=== PATIENT | female | born 1965 | race Hispanic/Latino ===

== ENCOUNTER → 2018-08-30 | Day surgery (SDC) | payer OTHER ==
[~2018-08-30] MED LIST: ACETAMINOPHEN325 M1 PO; ALLEGRA ALLERG180 MG PO; ALLEGRA-D 24 H1 EACH PO; CALCIUM + VIT D PO; CALCIUM PO; FENTANYL CITRATE/PF 100MCG/2 ML INJ ONE; MIDAZOLAM HCL 2 MG/2 ML VIAL ONE; OMEPRAZOLE20 MG PO; PANTOPRAZOLE SO40 MG PO; PROPOFOL IV EMULSION 10 MG/ML 50 ML VIAL ONE; SUCRALFATE1 GM PO; VITAMIN B-121000 MC1 PO; VITAMIN D1000 UNI1 PO; VITAMIN D3 PO; VITAMIN E PO; ZANTAC 7575 MG PO; ZANTAC150 MG PO; [UNRECOGNIZED DRUG - OTHER] PO; [UNRECOGNIZED DRUG - OTHER] PO; [UNRECOGNIZED DRUG - OTHER] PO; [UNRECOGNIZED DRUG - OTHER] PO
[2018-08-30 11:10] VITALS: BP 120/78
--- NOTE | 2018-08-30 11:41 | Operative Report ---
DATE OF PROCEDURE: August 30, 2018 REFERRING PHYSICIAN: Dr. Kiara Kyle. PROCEDURE PERFORMED: Esophagogastroduodenoscopy with biopsies. INDICATIONS FOR ESOPHAGOGASTRODUODENOSCOPY: Burning upper abdominal pain, excessive belching. MEDICATION: Patient was done under MAC. Please see anesthesiologist's note. PROCEDURE: With the patient in the left lateral decubitus position, the flexible fiberoptic Olympus gastroscope was introduced into the esophagus under direct visualization without any difficulty. There was some patchy erythema noted in the distal esophagus. The scope was then advanced with ease into the stomach, and there were a couple of erosions noted in the antrum without active bleeding, and biopsies were obtained and sent to stain for H. pylori. Multiple minute hyperplastic-appearing polyps were noted in the body of the stomach. Some were partially excised with the cold biopsy forceps. Pylorus appeared to be of normal contour and shape, was intubated with ease, and the scope was advanced all the way to the 2nd portion of the duodenum. The scope was then withdrawn slowly. Mucosa overlying the proximal 2nd portion and the duodenal bulb appeared to be within normal limits. Biopsies were obtained to rule out sprue. The scope was then withdrawn back into the stomach and retroflexed, and the mucosa overlying the fundus and the cardia appeared to be within normal limits. The scope was then straightened out. The stomach was decompressed. The scope was subsequently withdrawn. Patient tolerated procedure well. IMPRESSION: 1. Distal esophagitis, mild. 2. Erosive gastritis biopsied. Biopsies sent to stain for H. pylori. 3. Gastric polyps, body, hyperplastic-appearing, some partially excised with the cold biopsy forceps. 4. Rule out sprue. PLAN: Follow up histology. Continue Protonix 40 mg 1 p.o. a.c. b.i.d. Add Reglan 10 mg 1 p.o. before supper and nightly. Job#: [id number] EV cc:KIARA KYLE MD
== END | disposition home or self-care (01) ==
LOC: OR 08:49
PROVIDERS: ATTEND Internal Medicine Gastroenterology
DX: K21.0 Gastro-esophageal reflux disease with esophagitis (principal); K31.7 Polyp of stomach and duodenum; K25.9 Gastric ulcer, unspecified as acute or chronic, without hemorrhage or perforation; Z01.810 Encounter for preprocedural cardiovascular examination; Z68.28 Body mass index [BMI] 28.0-28.9, adult
CPT/HCPCS: 43239; 93005; J2250

== ENCOUNTER → 2020-01-14 | Day surgery (SDC) | payer OTHER ==
[~2020-01-14] MED LIST changes: +LIDOCAINE HCL 2% LOCAL INJ 5 ML SDV VIAL INJ ONE; +METOCLOPRAMIDE HCL 10 MG/2ML VIAL ONE; +PROPOFOL IV EMULSION 10 MG/ML 20 ML VIAL ONE; -PROPOFOL IV EMULSION 10 MG/ML 50 ML VIAL ONE; +[UNRECOGNIZED DRUG - OTHER] PO
[2020-01-14 12:20] VITALS: BP 116/63
--- NOTE | 2020-01-14 15:25 | Operative Report ---
DATE OF PROCEDURE: 01/14/2020 SURGEON: Lazaro Bridges MD PROCEDURE: EGD with polypectomy, esophageal dilatation, pyloric channel balloon dilatation and biopsies. INDICATIONS FOR EGD: Dysphagia, severe acid reflux. MEDICATIONS: The patient was done under MAC, please see anesthesiologist's note. PROCEDURE IN DETAIL: With the patient in left lateral decubitus position, the flexible fiberoptic Olympus gastroscope was introduced into the esophagus under direct visualization without any difficulty. There was some patchy erythema noted in the distal esophagus. The esophagus was dilated to size 52-[employer]. The scope was then advanced with ease into the stomach. Mucosa overlying the antrum and the body revealed some patchy erythema and low-grade to moderate edema. Biopsies were obtained, sent to stain for H pylori. Several minute hyperplastic-appearing polyps were noted in the body of the stomach and some were partially excised with the cold biopsy forceps. There was a minute prepyloric nodule and that was biopsied. Pylorus was then dilated to size 20 mm per TTS balloon dilators. The scope was then advanced with ease into the duodenum and it was then withdrawn slowly and biopsies were obtained from the proximal second portion and the duodenal bulb to rule out sprue. The scope was then withdrawn back into the stomach and retroflexed and mucosa overlying the fundus and cardia appeared to be within normal limits. The scope was then straightened out and was subsequently withdrawn. The patient tolerated the procedure well. IMPRESSION: 1. Distal esophagitis, mild. 2. Esophagus dilated to size 52-[employer] Infante. 3. Gastritis. 4. Gastric polyps, body, hyperplastic-appearing, some partially excised with the cold biopsy forceps. 5. Prepyloric nodule, biopsied. 6. Pyloric channel dilated to size 20 mm per TTS balloon dilators. 7. Rule out sprue. PLAN: Follow up histology. Initiate Dexilant 60 mg one p.o. q.a.m. a.c. Continue Carafate 1 g p.o. a.c. t.i.d. and at bedtime. Start Zantac 300 mg one p.o. at bedtime and continue Motilium 10 mg one p.o. a.c. t.i.d. and at bedtime. If the patient's symptoms persist, we will proceed with a gastric emptying study. MD GENET Mckeon/JODI /[id number] cc: Bear Sousa MD
== END | disposition home or self-care (01) ==
LOC: OR 10:00
PROVIDERS: ATTEND Internal Medicine Gastroenterology
DX: K21.0 Gastro-esophageal reflux disease with esophagitis (principal); J02.9 Acute pharyngitis, unspecified; R03.0 Elevated blood-pressure reading, without diagnosis of hypertension; Z68.29 Body mass index [BMI] 29.0-29.9, adult; K20.9 Esophagitis, unspecified; K29.70 Gastritis, unspecified, without bleeding; K31.7 Polyp of stomach and duodenum; Z11.59 Encounter for screening for other viral diseases; Z01.810 Encounter for preprocedural cardiovascular examination
CPT/HCPCS: 43239; 43450; 87635; 93005; C1726; J2001; J2250; J2704; J2765; J3010; 43233

== ENCOUNTER 2021-07-29 07:12 | Emergency (ER) | payer BC, OTHER ==
[~2021-07-29] VITALS: Ht 162.6 cm; Wt 73.0 kg
[~2021-07-29 07:12] MED LIST changes: -FENTANYL CITRATE/PF 100MCG/2 ML INJ ONE; -LIDOCAINE HCL 2% LOCAL INJ 5 ML SDV VIAL INJ ONE; -METOCLOPRAMIDE HCL 10 MG/2ML VIAL ONE; -MIDAZOLAM HCL 2 MG/2 ML VIAL ONE; -PROPOFOL IV EMULSION 10 MG/ML 20 ML VIAL ONE
[2021-07-29] MEDS ORDERED: SODIUM CHLORIDE 0.9% 1000ML 1,000 ML IV STA (07:30)
[2021-07-29 07:59] LABS: BASOPHILS % 0.6 % (0.0-1.0); EOSINOPHILS # (AUTO) 0.1 (0.0-0.4); EOSINOPHILS % 1.3 % (0.0-6.0); HEMOGLOBIN 13.4 g/dL (12.0-16.0); LYMPHOCYTES # (AUTO) 0.6 (1.0-3.2); LYMPHOCYTES % 12.9 % (18.0-39.1); MEAN CORPUSCULAR HEMOGLOBIN 31.1 pg (28-32); MEAN CORPUSCULAR HGB CONC 32.7 g/dL (31-35); MEAN CORPUSCULAR VOLUME 95.1 fL (81-99); MONOCYTES # (AUTO) 0.3 (0.2-0.8); MONOCYTES % 6.7 % (4.4-11.3); NEUTROPHILS # (AUTO) 3.6 (2.1-6.9); NEUTROPHILS % 78.3 % (38.7-80.0); PLATELET COUNT 244 x10e3/uL (140-360); RED BLOOD COUNT 4.31 x10e6/uL (3.6-5.1); RED CELL DISTRIBUTION WIDTH 12.8 % (11.7-14.4)
[2021-07-29] MEDS ORDERED: ONDANSETRON HCL INJ 2MG/ML 2ML 2 MG/ML VIAL IV STA (08:12)
[2021-07-29] MEDS ORDERED: DICYCLOMINE HCL 20 MG/2 ML VIAL IM ONE (08:15)
[2021-07-29 08:24] LABS: ALBUMIN 4.1 g/dL (3.5-5.0); ALBUMIN/GLOBULIN RATIO 1.2 (0.8-2.0); ANION GAP 15.9 mmol/L (8-16); CREATININE, SERUM 0.78 mg/dL (0.57-1.11); MAGNESIUM 1.8 MG/DL (1.3-2.1); POTASSIUM 3.9 mmol/L (3.5-5.1)
[2021-07-29 08:44] LABS: CREATINE KINASE MB 0.9 ng/mL (0-5.0); THYROID STIMULATING HORMONE 0.703 uIU/mL (0.350-4.940)
[2021-07-29 08:55] LABS: EOSINOPHILS % (MANUAL) 1 % (0-7); LYMPHOCYTES % (MANUAL) 15 % (19-48); MONOCYTES % (MANUAL) 12 % (3.4-9.0); NEUTROPHILS % (MANUAL) 72 % (40-74); PLATELET ESTIMATE ADEQUATE
[2021-07-29 08:56] LABS: PLATELET MORPHOLOGY COMMENT NORMAL; RBC MORPHOLOGY COMMENT NORMAL
[2021-07-29] MEDS ORDERED: CASIRIVIMAB/IMDEVIMAB 10 ML in SODIUM CHLORIDE 0.9% 100 ML IV ONE (09:00)
[2021-07-29 10:31] VITALS: BP 113/65
== END 2021-07-29 10:40 | disposition home or self-care (01) ==
LOC: ER 07:29
DX: U07.1 COVID-19 (principal); R20.0 Anesthesia of skin; R07.89 Other chest pain; R50.9 Fever, unspecified; K21.9 Gastro-esophageal reflux disease without esophagitis; F32.A Depression, unspecified
CPT/HCPCS: 36415; 71045; 72050; 80053; 82550; 82553; 83690; 83735; 83880; 84443; 84484; 85025; 85379; 99284; J0500; J2405; J7030; J7050; U0002